=== PATIENT | male | born 1990 | race Two or more races ===

== ENCOUNTER 2018-07-15 12:01 | Emergency (ER) | payer OTHER ==
[~2018-07-15] VITALS: Ht 170.2 cm; Wt 97.7 kg
[2018-07-15 12:19] VITALS: BP 115/74
[2018-07-15] MEDS ORDERED: ALBUTEROL/IPRATROPIUM 2.5MG/0.5MG, 3 ML ONE ×2 (12:39→12:54)
[2018-07-15] MEDS: ALBUTEROL/IPRATROPIUM 2.5MG/0.5MG, 3 ML NPPB SCH ×2 (12:42→12:57)
== END 2018-07-15 13:29 | disposition home or self-care (01) ==
LOC: ED 13:15
DX: J20.8 Acute bronchitis due to other specified organisms (principal); B96.89 Other specified bacterial agents as the cause of diseases classified elsewhere
CPT/HCPCS: 71046; 94640; 99284; J7512; J7620; 99283